=== PATIENT | female | born 1985 | race Caucasian/White ===

== ENCOUNTER 2023-06-13 16:25 | Emergency (ER) | payer SELFPAY ==
[~2023-06-13] VITALS: Ht 167.6 cm; Wt 46.3 kg
[2023-06-13] MEDS ORDERED: LORAZEPAM 1 MG TABLET ONE (16:59)
[2023-06-13] MEDS ORDERED: ONDANSETRON 4 MG TAB.RAPDIS ONE (16:59)
[2023-06-13] MEDS ORDERED: ACETAMINOPHEN ES 500 MG TABLET ONE (16:59)
[2023-06-13] MEDS ORDERED: LORAZEPAM 1 MG TABLET PO ONE (17:00)
[2023-06-13] MEDS ORDERED: ONDANSETRON 4 MG TAB.RAPDIS PO ONE (17:00)
[2023-06-13] MEDS ORDERED: ACETAMINOPHEN ES 500 MG TABLET PO ONE (17:00)
[2023-06-13 18:14] VITALS: BP 124/75; TEMP 98.1; O2SAT 99
== END 2023-06-13 18:15 | disposition home or self-care (01) ==
LOC: ER 16:35
DX: S09.8XXA Other specified injuries of head, initial encounter (principal); W22.8XXA Striking against or struck by other objects, initial encounter; Y93.89 Activity, other specified; Y92.89 Other specified places as the place of occurrence of the external cause; Y99.8 Other external cause status
CPT/HCPCS: 99284; 70450; 70486; Q0162

== ENCOUNTER 2023-06-19 01:52 | Emergency (ER) | payer SELFPAY ==
[~2023-06-19] VITALS: Ht 167.6 cm; Wt 44.5 kg
[2023-06-19 03:04] VITALS: BP 99/62; TEMP 97.7; O2SAT 100
== END 2023-06-19 03:04 | disposition left against medical advice (07) ==
LOC: ER 01:53
DX: R55 Syncope and collapse (principal)